=== PATIENT | female | born 1975 | race Caucasian/White ===

== ENCOUNTER 2018-09-18 21:24 | Emergency (ER) | payer OTHER ==
[~2018-09-18] VITALS: Ht 172.7 cm; Wt 59.0 kg
[~2018-09-18 21:24] MED LIST: BENTYL 20 MG TA20 M1 PO; KEFLEX500 M1 PO; LOMOTIL TABLET1 EACH PO; PROAIR HFA8.5 GM
[2018-09-18] MEDS ORDERED: NORCO 5-325 TA1 EAC1 PO (23:54)
[2018-09-18] MEDS ORDERED: DOXYCYCLINE 10100 MG PO (23:54)
[2018-09-18] MEDS ORDERED: PHENERGAN 25 MG25 M1 PO (23:54)
[2018-09-19 01:00] VITALS: BP 110/70
== END 2018-09-19 00:49 | disposition home or self-care (01) ==
LOC: ER 21:24
DX: L03.116 Cellulitis of left lower limb (principal); B35.3 Tinea pedis; J45.909 Unspecified asthma, uncomplicated; E11.9 Type 2 diabetes mellitus without complications; Z90.49 Acquired absence of other specified parts of digestive tract; Z90.710 Acquired absence of both cervix and uterus; Z88.5 Allergy status to narcotic agent; Z88.2 Allergy status to sulfonamides; Z88.8 Allergy status to other drugs, medicaments and biological substances